=== PATIENT | female | born 1995 | race Two or more races ===

== ENCOUNTER 2016-04-14 15:00 | Emergency (ER) | payer OTHER ==
[~2016-04-14 15:00] MED LIST: ACETAMINOPHEN120 ML PO; ALBUTEROL SULF8.5 G1 IH; ALBUTEROL17 GM; CLARITIN10 MG; MOTRIN600 MG PO; NO HOME MEDICATION XX; NORCO 7.5/325 T1 TAB PO; PEPCID20 MG PO; PREDNISONE20 MG PO; SUDAFED30 MG; TRAMADOL HCL50 MG PO; TRIAMCINOLONE A15 G1 EXT; VICODIN 5/500 T1 TAB PO
[2016-04-14] MEDS ORDERED: ZOFRAN ODT4 MG PO (16:10)
[2016-10-05] MEDS ORDERED: DENIES (10:21)
[2016-10-11] MEDS ORDERED: ROBAXIN-750750 M1 PO (08:43)
[2016-10-11] MEDS ORDERED: NORCO 5-325 TA1 EACH PO (08:54)
== END 2016-04-14 16:28 ==
LOC: EDMED 15:00
DX: M54.6 Pain in thoracic spine (principal); G89.29 Other chronic pain; F17.200 Nicotine dependence, unspecified, uncomplicated
CPT/HCPCS: J2360